=== PATIENT | female | born 1950 | race Caucasian/White ===

== ENCOUNTER → 2018-10-22 | Outpatient (CLI) | payer BC, OTHER ==
[~2018-10-22] MED LIST: ERYTHROCIN STE500 MG PO; KEFLEX500 MG PO; METAMUCIL197.2 GM PO; MOM PO; NITROGLYCERIN0.3 MG SL; NORCO 5-325 TA1 EACH PO; OXYBUTYNIN CHLO10 MG PO; OXYCODONE HCL 55 MG PO; PRINIVIL20 MG PO; SIMVASTATIN40 MG PO
== END ==
LOC: M.RAD 10-15 15:30
DX: Z12.31 Encounter for screening mammogram for malignant neoplasm of breast (principal)